=== PATIENT | male | born 1955 | race African-American/Black ===

== ENCOUNTER 2020-07-28 10:59 | Emergency (ER) | payer MEDICARE, MEDICAID ==
[~2020-07-28] VITALS: Ht 177.8 cm; Wt 89.0 kg
[2020-07-28 12:01] LABS: CLARITY URINE CLOUDY (CLEAR); COLOR URINE YELLOW (YELLOW); KETONES URINE TRACE (NEGATIVE); LEUKOCYTE ESTERASE URINE 3+ (NEGATIVE); NITRITE URINE POSITIVE (NEGATIVE); OCCULT BLOOD URINE TRACE (NEGATIVE); PROTEIN URINE TRACE (NEGATIVE); SPECIFIC GRAVITY URINE 1.017 (1.005-1.030); UROBILINOGEN URINE 0.2 E.U./dL (0.2-1.0)
[2020-07-28] MEDS ORDERED: HYDROCODONE/ACETAMINOPHEN 5/325MG TABLET PO STA (12:13)
[2020-07-28 12:23] LABS: CHLORIDE 105 mEq/L (98-107)
[2020-07-28 12:24] LABS: HEMATOCRIT. 47.5 % (42.0-52.0); HEMOGLOBIN. 15.4 g/dL (14.0-18.0); MEAN CORPUSCULAR HEMOGLOBIN 26.3 pg (28.0-32.0); MEAN PLATELET VOLUME 8.1 fl (7.4-10.4); PLATELET 228 x1000/uL (130-400); RED BLOOD CELL COUNT 5.86 mill/uL (4.7-6.1); RED CELL DISTRIBUTION WIDTH 15.3 % (11.6-14.6)
[2020-07-28] MEDS ORDERED: CEFTRIAXONE 1 G PREMIX 50 ML IV NR (12:45)
[2020-07-28 13:26] LABS: PLATELET ESTIMATE NORMAL
[2020-07-28] MEDS ORDERED: CIPR500S3 PO (14:23)
[2020-07-28 14:40] VITALS: BP 150/90
== END 2020-07-28 14:58 | disposition home or self-care (01) ==
LOC: ER 10:59
DX: N45.2 Orchitis (principal); N50.812 Left testicular pain; N45.1 Epididymitis; N39.0 Urinary tract infection, site not specified; F17.290 Nicotine dependence, other tobacco product, uncomplicated
CPT/HCPCS: 36415; 76870; 80053; 81003; 85025; 87077; 87086; 87186; 93976; 96365; 99284; J0696

== ENCOUNTER 2020-08-13 04:58 | Emergency (ER) | payer MEDICARE, MEDICAID ==
[~2020-08-13] VITALS: Ht 180.3 cm; Wt 84.0 kg
[~2020-08-13 04:58] MED LIST: CIPR500S3 PO
[2020-08-13 08:25] LABS: CLARITY URINE CLEAR (CLEAR); COLOR URINE YELLOW (YELLOW); KETONES URINE NEGATIVE (NEGATIVE); LEUKOCYTE ESTERASE URINE NEGATIVE (NEGATIVE); NITRITE URINE NEGATIVE (NEGATIVE); OCCULT BLOOD URINE NEGATIVE (NEGATIVE); PH URINE 5.5 (4.5-8.0); PROTEIN URINE NEGATIVE (NEGATIVE); SPECIFIC GRAVITY URINE 1.015 (1.005-1.030); UROBILINOGEN URINE 0.2 E.U./dL (0.2-1.0)
[2020-08-13 08:43] LABS: BASOPHILS % 0.8 % (0.0-2.0); EOSINOPHILS % 1.7 % (0.0-5.0); HEMATOCRIT. 42.2 % (42.0-52.0); HEMOGLOBIN. 14.5 g/dL (14.0-18.0); MEAN CORPUSCULAR HEMOGLOBIN 26.2 pg (28.0-32.0); MEAN CORPUSCULAR VOLUME 76.1 fL (80.0-94.0); MEAN PLATELET VOLUME 7.8 fl (7.4-10.4); MONOCYTES % 7.7 % (2.0-8.0); NEUTROPHILS % 79.8 % (40.0-76.0); PLATELET 383 x1000/uL (130-400); RED BLOOD CELL COUNT 5.54 mill/uL (4.7-6.1); RED CELL DISTRIBUTION WIDTH 14.5 % (11.6-14.6)
[2020-08-13 08:45] LABS: CHLORIDE 109 mEq/L (98-107)
[2020-08-13 08:48] LABS: PROTHROMBIN TIME 10.4 sec (9.6-11.0)
[2020-08-13] MEDS ORDERED: HYDROCODONE/ACETAMINOPHEN 5/325MG TABLET PO ONE (10:15)
[2020-08-13] MEDS ORDERED: DOXYCYCLINE HYCLATE 100 MG/VIAL IV ONE (12:30)
[2020-08-13] MEDS ORDERED: DOXYCYCLINE HYCLATE 100MG CAPSULE PO ONE (12:30)
[2020-08-13] MEDS ORDERED: DOXY150T9 MT (12:53)
[2020-08-13] MEDS ORDERED: TAMS-11 MT (12:53)
[2020-08-13] MEDS ORDERED: HYDR-4346 MT (12:53)
[2020-08-13] MEDS ORDERED: DOXYCYCLINE 100MG in DEXTROSE 5% WATER 100ML IV SCH (13:00)
[2020-08-13 13:20] VITALS: BP 144/80
== END 2020-08-13 13:24 | disposition home or self-care (01) ==
LOC: ER 04:58
DX: N45.1 Epididymitis (principal); N43.3 Hydrocele, unspecified; N45.2 Orchitis; F17.290 Nicotine dependence, other tobacco product, uncomplicated; F12.10 Cannabis abuse, uncomplicated; Z87.440 Personal history of urinary (tract) infections; Z79.899 Other long term (current) drug therapy
CPT/HCPCS: 36415; 76870; 80053; 81003; 83605; 84145; 85025; 85610; 87040; 87086; 93976; 99285; J3490; J7060